=== PATIENT | female | born 1940 | race Asian ===

== ENCOUNTER → 2017-12-18 | Outpatient (CLI) | payer MEDICARE, MEDICAID | END | disposition home or self-care (01) | LOC: RADPV 10:03 | PROVIDERS: ATTEND Family Medicine | DX: M46.07 Spinal enthesopathy, lumbosacral region (principal); M16.11 Unilateral primary osteoarthritis, right hip | CPT/HCPCS: 72100; 73502 ==

== ENCOUNTER → 2019-12-08 | Outpatient (CLI) | payer MEDICARE | END | disposition home or self-care (01) | LOC: RADPV 09:59 | PROVIDERS: ATTEND Family Medicine | DX: M25.511 Pain in right shoulder (principal); M25.521 Pain in right elbow; M79.641 Pain in right hand | CPT/HCPCS: 73030-TC; 73080-TC; 73130-TC ==